=== PATIENT | female | born 1995 | race American Indian/Alaskan Native ===

== ENCOUNTER 2018-02-02 22:31 | Emergency (ER) | payer OTHER ==
[2018-02-02 22:54] VITALS: BP 103/58
[2018-02-03] MEDS ORDERED: ROBITUSSIN PO ONE (02:08)
[2018-02-03] MEDS ORDERED: DELTASONE PO ONE (02:09)
[2018-02-03] MEDS ORDERED: ZITHROMAX PO ONE (02:09)
--- NOTE | 2018-02-03 02:34 | Emergency Department Report ---
Minor Respiratory - HPI Chief Complaint: Upper Respiratory Infection Stated Complaint: SOB/SORE THROAT/DSOUZA/FACIAL SORENESS Time Seen by Provider: 02/03/18 01:44 Duration: 5 Days Pain Location: Facial Severity: mild Minor Respiratory: Yes Sore Throat, Yes Able to Tolerate Fluids, Yes Cough, Yes Sick Contacts (co workers), No Rhinorrhea, No Ear Pain, No Hemoptysis, No Chest Pain, No Shortness of Breath, No Fever Other History: 21-year-old female presents with a week of nasal congestion, facial pain sore throat and intermittent dry nonproductive coughing patient states she's been around coworkers and a tetanus bases and coughing for the past couple weeks. Patient states she initially had a fever that of the fibula does not resolve. ED Review of Systems ROS: Stated complaint: SOB/SORE THROAT/DSOUZA/FACIAL SORENESS Other details as noted in HPI Constitutional: denies: chills, fever Eyes: denies: eye pain, eye discharge, vision change ENT: throat pain, congestion. denies: ear pain Respiratory: denies: cough, shortness of breath, wheezing Cardiovascular: denies: chest pain, palpitations Endocrine: no symptoms reported Gastrointestinal: denies: abdominal pain, nausea, diarrhea Genitourinary: denies: urgency, dysuria, frequency, hematuria, discharge Musculoskeletal: denies: back pain, joint swelling, arthralgia, myalgia Skin: denies: rash, lesions Neurological: denies: headache, weakness, paresthesias Psychiatric: denies: anxiety, depression Hematological/Lymphatic: denies: easy bleeding, easy bruising ED Past Medical Hx - Past Medical History Additional medical history: HPV - Surgical History Past Surgical History?: No - Social History Smoking Status: Never Smoker Substance Use Type: None - Medications Home Medications: Home Medications Medication Instructions Recorded Confirmed Last Taken Type Azithromycin [Zithromax TAB] 250 mg PO DAILY #5 tablet 02/03/18 Unknown Rx Carbamide Peroxide [Ear Wax 2 drops OT BID #15 ml 02/03/18 Unknown Rx Removal] Pseudoephedrine ER [Sudafed 12 Hr] 120 mg PO BID #20 tablet.er 02/03/18 Unknown Rx guaiFENesin [Robitussin] 200 mg PO TID #100 ml 02/03/18 Unknown Rx Minor Respiratory Exam - Exam General: Vital signs noted. No distress. Alert and acting appropriately. HEENT: Yes Moist Mucous Membranes, No Pharyngeal Erythema, No Pharyngeal Exudates, No Rhinorrhea, No Conjuctival Injection, No Frontal Tenderness, No Maxillary Tenderness Ear: Neither TM Bulge, Neither TM Erythema, Neither EAC Pain, Neither EAC Discharge Neck: Yes Supple, No Adenopathy Lungs: Yes Good Air Exchange, No Wheezes, No Ronchi, No Stridor, No Cough, No Labored Respirations, No Retractions, No Use of Accessory Muscles, No Other Abnormal Lung Sounds Heart: Yes Regular, No Murmur Abdomen: Yes Normal Bowel Sounds, No Tenderness, No Peritoneal Signs Skin: No Rash, No Edema Neurologic: Alert and oriented, no deficits. Musculoskeletal: Unremarkable. ED Course Vital Signs 02/02/18 22:49 Temperature 98.2 F Pulse Rate 66 Respiratory 16 Rate Blood Pressure 103/58 O2 Sat by Pulse 100 Oximetry ED Medical Decision Making - Medical Decision Making This is a 22-year-old female presents with sinusitis ED course: Patient is to maintain ED Vital signs are normal patient is in acute distress Patient will be sent on trial of antibiotics and symptomatic relief. Discussed the patient to follow up with primary care physician Patient is in no acute or respiratory distress she understands all instructions given. Critical care attestation.: If time is entered above; I have spent that time in minutes in the direct care of this critically ill patient, excluding procedure time. ED Disposition Clinical Impression: Sinusitis Qualifiers: Sinusitis location: maxillary Chronicity: acute Recurrence: non-recurrent Qualified Code(s): J01.00 - Acute maxillary sinusitis, unspecified Disposition: - TO HOME OR SELFCARE Is pt being admited?: No Does the pt Need Aspirin: No Condition: Stable Instructions: Acute Bacterial Rhinosinusitis (ED), Sinusitis (ED), Upper Respiratory Infection (ED) Additional Instructions: Make sure to follow up with the primary care physician as discussed. Take all your medications as you've been prescribed. If you have any worsening symptoms or develop new symptoms please return to ED immediately. Prescriptions: Azithromycin [Zithromax TAB] 250 mg PO DAILY #5 tablet Carbamide Peroxide [Ear Wax Removal] 2 drops OT BID #15 ml guaiFENesin [Robitussin] 200 mg PO TID #100 ml Pseudoephedrine ER [Sudafed 12 Hr] 120 mg PO BID #20 tablet.er Referrals: PRIMARY CARE, [Referring] - 3-5 Days [facility] [Outside] - 3-5 Days Forms: Accompanied Note, Work/School Release Form(ED) Time of Disposition: 02:37
== END 2018-02-03 02:58 | disposition home or self-care (01) ==
LOC: ED 22:31
DX: J32.9 Chronic sinusitis, unspecified (principal)
CPT/HCPCS: 87116; 87430; 99283; J7512